=== PATIENT | female | born 1995 | race African-American/Black ===

== ENCOUNTER 2016-08-07 18:32 | Emergency (ER) ==
[2016-08-07 19:10] LABS: URINE SOURCE CLEAN CATCH
[2016-08-07 19:25] LABS: BILIRUBIN URINE NEGATIVE (NEGATIVE); BLOOD URINE NEGATIVE (NEGATIVE); CLARITY SL. CLOUDY (CLEAR); COLOR YELLOW; GLUCOSE URINE NEGATIVE (NEGATIVE); LEUKOCYTES URINE 1+ (NEGATIVE); NITRITE URINE NEGATIVE (NEGATIVE); PROTEIN URINE TRACE mg/dL (NEGATIVE); SP GRAVITY URINE 1.025; UROBILINOGEN URINE NORMAL
[2016-08-07 19:39] LABS: URINE EPITHELIAL CELLS >10 /HPF (<10)
[2016-08-07 19:40] LABS: URINE CULTURE PL NEEDED? YES
--- NOTE | 2016-08-07 21:00 | PROVIDER DOCUMENTATION ---
HPI-Female /OB/Breast - General Chief Complaint: Female Stated Complaint: UTI SX Time Seen by Provider: 08/07/16 20:43 Source: reports: patient Allergies/Adverse Reactions: Patient Allergies Allergy/AdvReac Type Severity Reaction Status Date / Time No Known Allergies Allergy Verified 06/06/16 17:38 Home Medications: Home Medication List Medication Instructions Recorded Confirmed Last Taken Type Metronidazole [Flagyl] 500 mg PO TID #15 tablet 08/07/16 Unknown Rx Nitrofurantoin Monohyd/M-Cryst 100 mg PO BID #20 capsule 08/07/16 Unknown Rx [Macrobid 100 mg Capsule] - History of Present Illness-Female /OB Does patient report she is ?: No Location of complaint: reports: vaginal Radiation: reports: none Quality of Pain: reports: burning Severity in ED: reports: mild Onset/Duration: reports: last week Timing: reports: still present Context/Activities at Onset: reports: none Vaginal Symptoms: reports: discharge Vaginal Bleeding Amount: None Urinary Symptoms: reports: dysuria. denies: hematuria Related Symptoms: reports: vaginal fluid leakage. denies: vaginal bleeding, abdominal pain Leakage of Fluid: mild Sexual intercourse history: reports: Less Than 2 Months Ago Contraception: reports: none Modifying Factors: improves with: nothing Associated Symptoms: reports: denies symptoms Similar Symptoms Previously?: No Recently seen or treated by another doctor?: No Review of Systems - Adult - REVIEW OF SYSTEMS - ADULT Constitutional: denies: chills, fever, fatique Cardiovascular: denies: chest pain, irregular heart rate, palpitations Respiratory: denies: cough, shortness of breath, wheezing Gastrointestinal: denies: abdominal pain, diarrhea, nausea, vomiting Genitourinary: reports: dysuria, discharge, frequent UTI's. denies: flank pain , hematuria Musculoskeletal: denies: back pain, joint swelling, neck pain Integumentary: denies: hives, itching, rash All Other Systems: Reviewed and Negative Past History - Adult - PAST MEDICAL HISTORY-ADULT Review of Records: reports: Old Records Reviewed, Nursing Assessment Review, Medications Reviewed Genitourinary: reports: chronic UTI's - PRIOR SURGERIES/PROCEDURES Surgical/Procedure History: reports: none - IMMUNIZATION STATUS Childhood Immunizations: See Nurse Assessment Flu Vaccine: See Nurse Assessment - FAMILY HISTORY Family History: reviewed, not pertinent - SOCIAL HISTORY Smoking: less than 1 pack/day Provider spent 3-5 mins advising pt. on dangers of tobacco.: Discussed manners to quit use, and f/u contacts for add'l counseling. Substance Use: alcohol Alcohol Use Frequency: occasionally Number of drinks per typical drinking period:: 1 drink Living Situation: family Physical Exam-General - CONSTITUTIONAL General Appearance: appears well, alert, no apparent distress - EYES Eyes: PERRL/EOMI, pink conjunctivae, fundi clear, no AV nicking - NECK Neck: full range of motion, normal inspection - RESPIRATORY Respiratory: chest non-tender, lungs clear, normal breath sounds, no pleuratic chest pain, no respiratory distress, no accessory muscle use - CARDIOVASCULAR Cardiovascular: normal peripheral pulses, regular rate, rhythm, no edema, no gallop, no JVD, no murmur - GASTROINTESTINAL (ABDOMEN) Abdominal Exam: normal bowel sounds, non tender, soft, no organomegaly, no pulsatile mass - MUSCULOSKELETAL Extremity: normal range of motion, normal inspection - SKIN Integumentary: normal color, normal turgor, warm/dry - PSYCHIATRIC Psych/Mental Status: normal mood/affect, normal thought content, normal thought process, oriented x 3 Progress - PLAN OF CARE/RESULTS Progress/Plan/Lab Results: Laboratory Results - last 24 hr 08/07/16 18:59 Urine Source CLEAN CATCH Urine Color YELLOW Urine Clarity SL. CLOUDY A Urine pH 5.0 Ur Specific Thompson 1.025 Urine Protein TRACE A Urine Ketones TRACE Urine Blood NEGATIVE Urine Nitrite NEGATIVE Urine Bilirubin NEGATIVE Urine Urobilinogen NORMAL Urine Microscopic RBC Not Reportable Urine WBC 1+ A Urine Microscopic WBC 10-20 A Ur Epithelial Cells >10 A Urine Bacteria 1+ Urine Glucose NEGATIVE Bedside Urine ED: Urine Bedside Start: 08/07/16 18:55 Freq: ORDERED Status: Active Activity Type Activity Date Activity User Co-Sign Detail Recorded Client Recorded Date Recorded By Document 08/07/16 18:56 [id number] 08/07/16 19:14 [id number] 08/07/16 18:56 Point of Care [Bedside Point of Care] -Lot # [id number] - Results Negative -Control Line Visible? Yes Departure - Departure Time of Disposition Order: 21:03 DIAGNOSIS: Trichomonosis UTI (urinary tract infection) Qualifiers: Urinary tract infection type: site unspecified Hematuria presence: without hematuria Qualified Code(s): N39.0 - Urinary tract infection, site not specified Disposition: HOME 01 Certified Medical Emergency: Emergent Condition: Good Additional Instructions: ED Follow Up Instructions: You have been treated by a care provider in the Emergency Department. These instructions are being provided to you so you can have an understanding of how to care for yourself upon discharge. Upon discharge from the Emergency Department, you are responsible for making arrangements for follow-up care by a physician of your choice. Take all prescribed medications as directed. Return to the Emergency Department immediately for any new or worsening symptoms. You may call the Physician Referral phone number at [phone] to obtain a list of Physicians who are taking new patients. Prescriptions: Metronidazole [Flagyl] 500 mg PO TID #15 tablet Nitrofurantoin Monohyd/M-Cryst [Macrobid 100 mg Capsule] 100 mg PO BID #20 capsule Attestation - Scribe Verification/Attestation Scribe:: Peter Ferrer Acting as Scribe for:: Lj Diggs Scribe documention review:: This chart was documented by a scribe and accurately reflects the service the provider performed and the decisions made by the provider.
[2016-08-07 21:05] VITALS: BP 126/87
== END 2016-08-07 21:06 | disposition home or self-care (01) ==
LOC: P.ED 18:32
DX: N39.0 Urinary tract infection, site not specified (principal); A59.9 Trichomoniasis, unspecified; R30.0 Dysuria; N89.8 Other specified noninflammatory disorders of vagina; Z87.440 Personal history of urinary (tract) infections; F17.210 Nicotine dependence, cigarettes, uncomplicated; Z71.6 Tobacco abuse counseling
CPT/HCPCS: 81001; 81025; 87088; 99283